=== PATIENT | male | born 2005 | race African-American/Black ===

== ENCOUNTER 2024-12-02 18:59 | Emergency (ER) | payer MEDICAID ==
[~2024-12-02] VITALS: Ht 190.5 cm; Wt 68.0 kg
[2024-12-02 19:31] LABS: GLUCOMETER DEV NAME(LOC) ER.7; GLUCOSE,POINT OF CARE 114 MG/DL (70-110)
[2024-12-02 19:35] VITALS: TEMP 98.305304
[2024-12-02 20:21] LABS: PLATELET COUNT (AUTO) 180 K/uL (150-450); RED BLOOD CELL COUNT(AUTO) 4.49 MIL/uL (4.50-5.90); RED CELL DISTRIBUTION WIDTH 13.0 % (11.5-14.5); WHITE BLOOD COUNT (AUTO) 3.4 K/uL (4.5-11.0)
[2024-12-02 20:23] LABS: CALCIUM, TOTAL 8.3 mg/dL (8.8-10.5); CREATININE 0.97 mg/dL (0.60-1.30); GLOMERULAR FILTR. RATE CALC > 60 mL/min (>60); GLUCOSE,RANDOM 102 mg/dL (70-110); SODIUM SERUM 140 mmol/L (136-145); UREA NITROGEN, BLOOD 7 mg/dL (7-18)
[2024-12-02] MEDS: POTASSIUM CHLORIDE 20 MEQ ER TABLET PO ONE (21:37)
[2024-12-02 21:55] VITALS: BP 130/76; PULSE 74; RESP 18; O2SAT 99
== END 2024-12-02 22:15 | disposition home or self-care (01) ==
LOC: EMS 18:59
DX: E87.6 Hypokalemia (principal); R53.1 Weakness; F12.90 Cannabis use, unspecified, uncomplicated
CPT/HCPCS: 80048; 82962; 85025; 93005; 99284